=== PATIENT | male | born 1990 | race Caucasian/White ===

== ENCOUNTER 2016-10-05 13:56 | Emergency (ER) | payer OTHER ==
[2016-10-05] MEDS ORDERED: OXAZEPAM 15 MG CAP As Ordered ONE (14:25)
[2016-10-05 14:45] LABS: MEAN CORPUSCULAR HEMOGLOBIN 32.3 pg (27.0-33.0); MEAN CORPUSCULAR HGB CONC 34.7 g/dl (32.0-36.5); MEAN CORPUSCULAR VOLUME 92.8 fl (80.0-96.0); RED CELL DISTRIBUTION WIDTH 11.8 % (11.5-14.5); WHITE BLOOD COUNT 14.6 K/mm3 (4.0-10.0)
[2016-10-05 15:16] LABS: AMPHETAMINES LEVEL URINE NEGATIVE (NEGATIVE); BENZODIAZEPINES URINE POSITIVE (NEGATIVE); COCAINE METABOLITE URINE NEGATIVE (NEGATIVE); CONTROL LINE INT CTR LINE PRESENT; METHADONE URINE NEGATIVE (NEGATIVE); OPIATES URINE NEGATIVE (NEGATIVE); TRICYCLIC ANTIDEPRESS URINE NEGATIVE (NEGATIVE)
[2016-10-05 15:31] LABS: ALBUMIN 4.5 GM/DL (3.2-5.2); ALBUMIN/GLOBULIN RATIO 1.45 (1.00-1.93); ALKALINE PHOSPHATASE 57 U/L (45-117); ALT/SGPT 43 U/L (12-78); ANION GAP 10 MEQ/L (8-16); AST/SGOT 26 U/L (15-37); BILIRUBIN,DIRECT 0.2 MG/DL (0.0-0.2); BILIRUBIN,TOTAL 0.6 MG/DL (0.2-1.0); BLOOD UREA NITROGEN 14 MG/DL (7-18); CALCIUM LEVEL 9.3 MG/DL (8.5-10.1); CARBON DIOXIDE LEVEL 26 MEQ/L (21-32); CHLORIDE LEVEL 104 MEQ/L (98-107); CREATININE FOR GFR 1.16 MG/DL (0.70-1.30); GLOMERULAR FILTRATION RATE > 60.0 (>60); GLUCOSE, FASTING 74 MG/DL (70-105); MAGNESIUM LEVEL 1.9 MG/DL (1.8-2.4); POTASSIUM SERUM 4.6 MEQ/L (3.5-5.1); SODIUM LEVEL 140 MEQ/L (136-145); TOTAL PROTEIN 7.6 GM/DL (6.4-8.2)
--- NOTE | 2016-10-05 17:00 | EDDOCDS ---
Physician Documentation [facility] Name: Juan Antonio Saldaña Age: 26 yrs Sex: Male : 1990 Arrival Date: 10/05/2016 Time: 13:56 Bed 3 Private MD: Luz He [facility] Disposition: 10/05/16 16:13 Discharged to Home/Self Care. Impression: Alcohol dependence with withdrawal. - Condition is Stable. - Discharge Instructions: Alcohol Withdrawal. - Prescriptions for Oxazepam 30 mg Oral Capsule - take 1 capsule by ORAL route 3 times per day MDD: 3 tabs; 10 capsule. - Medication Reconciliation, Local Pharmacy Hours form. - Follow up: [facility] Luz He; When: Call to arrange an appointment; Reason: Recheck today's complaints, Continuance of care. - Problem is new. - Symptoms have improved. Historical: - Allergies: no known allergies; - Home Meds: 1. ibuprofen 800 mg Oral tab 1 tab 4 times per day (Last dose: 10/02/2016) 2. Tylenol 500 mg Oral tab 2 tabs (Last dose: 10/04/2016 21:00) - PMHx: PTSD; Anxiety; Depression; - PSHx: none; - Social history: Smoking status: Patient states former smoker of tobacco. No barriers to communication noted, The patient speaks fluent [place] Islander, Speaks appropriately for age. - Family history: Not pertinent. - : The pt / caregiver states he / she is not on anticoagulants. Home medication list is obtained from the patient. - Exposure Risk Screening:: None identified. Vital Signs: 10/05 14:15 BP 126 / 75 (auto/); ead 14:15 Pulse 119 MON; Pulse Ox 98% ; ead 14:21 BP 126 / 75; Pulse 114; Resp 18; Temp 97.6(O); Pulse Ox 99% on R/A; Weight 88.45 kg / ct3 195 lbs (R); Height 71 in. (180.34 cm) (R); Pain 2/10; 16:01 BP 131 / 71; Pulse 100; Resp 18; Pulse Ox 99% on R/A; ead 16:59 BP 139 / 83; Pulse 100; Resp 16; Temp 98.4; Pulse Ox 100% on R/A; ead 14:21 Body Mass Index 27.20 (88.45 kg, 180.34 cm) ct3 MDM: 14:00 Consult PFS/PSA/Engine Builder ordered. sd1 14:00 Prepared Foods Team Leader/Pulse Ox/q 15 min VS ordered. sd1 14:00 Confirm accurate psychiatric medication list and times of last dosage ordered. sd1 14:00 Oxazepam 30 mg PO once ordered. sd1 14:00 Acetaminophen Level Ordered. EDMS 14:01 Basic Metabolic Profile Ordered. EDMS 14:01 Complete Blood Count Ordered. EDMS 14:01 Drug Eval Toxicology ED Only Ordered. EDMS 14:01 Ethyl Alcohol (ethanol) Ordered. EDMS 14:01 Liver Profile Ordered. EDMS 14:01 Salicylate Level Ordered. EDMS 14:01 Thyroid Stimulating Hormone Ordered. EDMS 14:01 ECG WITH READING ER PHYS+CARDIAG ordered. EDMS 14:40 NS 0.9% 1000 ml IV at bolus once ordered. sd1 14:56 MAGNESIUM LEVEL Ordered. EDMS 15:26 Complete Blood Count Reviewed. sd1 15:26 Drug Eval Toxicology ED Only Reviewed. sd1 15:37 Acetaminophen Level Reviewed. sd1 15:37 Salicylate Level Reviewed. sd1 15:37 Basic Metabolic Profile Reviewed. sd1 15:37 Ethyl Alcohol (ethanol) Reviewed. sd1 15:37 Liver Profile Reviewed. sd1 15:37 Thyroid Stimulating Hormone Reviewed. sd1 15:37 MAGNESIUM LEVEL Reviewed. sd1 15:50 ED course: 26 yo male presents with etoh withdrawal patient reports mild tremulousness sd1 no cp no db versed given prior to arrival by EMS patient reports to me he wants to stop drinking understands risks of drinking and taking serax he has OP FU for ETOH through [place] PSA involved withdrawal mild. Administered Medications: 14:28 Drug: Oxazepam 30 mg [oxazepam 15 mg capsule (2 caps)] Route: PO; mcp 14:45 Drug: NS 0.9% 1000 ml [sodium chloride 0.9 % intravenous solution] Route: IV; Rate: mcp bolus; Site: left antecubital; Signatures: Dispatcher [employer] EDMS Emily Chavez MD MD sd1 Gisella Nagy RN RN hs1 April Jaquez RN RN ead Peters, Mary RN [facility] The chart was reviewed and I authenticate all verbal orders and agree with the evaluation and treatment provided.Corrections: (The following items were deleted from the chart) 14:56 14:47 MAGNESIUM LEVEL+LAB ordered. EDMS EDMS MTDD
--- NOTE | 2016-10-05 17:00 | EDDOCDS ---
Nurse's Notes [facility] Name: Juan Antonio Saldaña Age: 26 yrs Sex: Male : 1990 Arrival Date: 10/05/2016 Time: 13:56 Bed 3 Private MD: Luz He [facility] Diagnosis: Alcohol dependence with withdrawal Presentation: 10/05 14:07 Presenting complaint: EMS states: 7 beers last night and 1 pint of alcohol last night. hs1 Pt alcoholic hx of alocholism and enrolling in [facility] (today). Sent by [facility] for evaluation due to Behavioral Health sending him to [facility]. 2 mg Versed given per Medical Control. Pt also going through divorce - and is having some mental issues - possibly PTSD. Mental Health Triage Level: Level 1- Pt displays no suicidal or homicidal ideations and does not appear to be a danger to self or others. Adult Sepsis Screening: The patient does not have new or worsening altered mentation. Patient's respiratory rate is less than 22. Systolic blood pressure is greater than 100. Patient has a qSOFA score of 0- Negative Sepsis Screen. Suicide/Homicide risk assessment- Patient denies SI and HI but presents with another emotional, behavioral or other mental health complaint. The patient reports that he/she has not been admitted to an inpatient mental health facility in the last 30 days. The patient reports that he/she has a recent or current history of substance abuse. The patient reports that he/she has no prior history of suicide attempt and/or organized plan. The patient reports that he/she has experienced a significant life altering event in the last 30 days. The patient reports that he/she has adequate social support. The patient reports he/she has no significant chronic medical condition(s). 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 Transition of care: patient was not received from another setting of care. 14:07 Acuity: NATALIA Level 3 hs1 14:07 Method Of Arrival: Ambulance hs1 Historical: - Allergies: no known allergies; - Home Meds: 1. ibuprofen 800 mg Oral tab 1 tab 4 times per day (Last dose: 10/02/2016) 2. Tylenol 500 mg Oral tab 2 tabs (Last dose: 10/04/2016 21:00) - PMHx: PTSD; Anxiety; Depression; - PSHx: none; - Social history: Smoking status: Patient states former smoker of tobacco. No barriers to communication noted, The patient speaks fluent Uz[place], Speaks appropriately for age. - Family history: Not pertinent. - : The pt / caregiver states he / she is not on anticoagulants. Home medication list is obtained from the patient. - Exposure Risk Screening:: None identified. Screenin:48 Screening information is obtained from the patient. Fall risk: No risks identified. mcp Assistance ADL's: requires no assistance with activities of daily living. Abuse/DV Screen: The patient / caregiver reports he/she is: not in a situation that causes fear, pain or injury. Nutritional screening: No deficits noted. Advance Directives: Currently, there is no health care proxy. There is no active DNR order. There is no Power of Hospital Medical Assistant. home support is adequate. Assessment: 14:30 General: Appears distressed, Behavior is anxious. Pain: Denies pain. Neurological: mcp Level of Consciousness is awake, alert, Oriented to person, place, time, Moves all extremities. Speech is normal. Cardiovascular: Rhythm is sinus rhythm No ectopy. Chest pain is denied. Respiratory: Airway is patent Respiratory effort is even, unlabored, Breath sounds are clear bilaterally. Derm: Skin is pink, warm & dry. Musculoskeletal: Circulation, motion, and sensation intact stated leg cramps bilateral. 15:50 General: Appears in no apparent distress, comfortable, Behavior is cooperative. ead Neurological: Level of Consciousness is awake, alert, Oriented to person, place, time. 15:50 Respiratory: Airway is patent Respiratory effort is even, unlabored. Derm: Skin is ead pink, warm & dry. 16:45 General: Appears in no apparent distress, comfortable, Behavior is appropriate for age, ead cooperative. Neurological: Level of Consciousness is awake, alert, Oriented to person, place, time. Respiratory: Airway is patent Respiratory effort is even, unlabored. Derm: Skin is Skin is pink, warm & dry. Vital Signs: 14:15 BP 126 / 75 (auto/); ead 14:15 Pulse 119 MON; Pulse Ox 98% ; ead 14:21 BP 126 / 75; Pulse 114; Resp 18; Temp 97.6(O); Pulse Ox 99% on R/A; Weight 88.45 kg ct3 (R); Height 71 in. (180.34 cm) (R); Pain 2/10; 16:01 BP 131 / 71; Pulse 100; Resp 18; Pulse Ox 99% on R/A; ead 16:59 BP 139 / 83; Pulse 100; Resp 16; Temp 98.4; Pulse Ox 100% on R/A; ead 14:21 Body Mass Index 27.20 (88.45 kg, 180.34 cm) ct3 ED Course: 12:17 EKG done. (by ED staff). Reviewed by Emily Chavez MD. ct3 13:58 Patient visited by Genna Rose, Manager Land. lbd 13:58 [place], [facility] is Private Physician. lbd 13:58 Patient moved to Waiting lbd 13:59 Emily Chavez MD is Attending Physician. sd1 13:59 Patient moved to 3 lbd 14:11 Triage Initiated hs1 14:15 Patient visited by Emily Chavez MD. sd1 14:19 Elva Carreno DO is PHCP. bs6 14:21 Patient has correct armband on for positive identification. Placed in psych safe ct3 attire. Bed in low position. Call light in reach. Side rails up X2. tactical response group officer on. Pulse ox on. NIBP on. 14:22 Patient visited by Elva Carreno DO. bs6 14:22 Patient visited by Vernell Delacruz PCA. ct3 14:30 Maintain field IV. Dressing intact. Good blood return noted. Site clean & dry. Gauge & mcp site: #20 left AC. 14:47 Drug Eval Toxicology ED Only Sent. mcp 14:49 Patient visited by Emani Harrell RN. mcp 14:49 The patient / caregiver is instructed regarding the plan of care and ED course. mcp 15:01 April Jaquez RN is Primary Nurse. ead 15:01 MAGNESIUM LEVEL Sent. mcp 16:00 Patient visited by April Jaquez RN. ead 16:13 [facility] sd1 16:59 Discontinued IV intact, bleeding controlled, pressure dressing applied, No ead redness/swelling at site. No procedures done that require assistance. Administered Medications: 14:28 Drug: Oxazepam 30 mg [oxazepam 15 mg capsule (2 caps)] Route: PO; mcp 14:45 Drug: NS 0.9% 1000 ml [sodium chloride 0.9 % intravenous solution] Route: IV; Rate: mcp bolus; Site: left antecubital; Order Results: Lab Order: Acetaminophen Level; [facility]' 10/05/16 14:36 Test: ACETAMINOPHEN LEVEL; Value: < 2.0; Range: 10.0-30.0; Abnormal: Below low normal; Units: UG/ML; Status: F Lab Order: Basic Metabolic Profile; [facility]' 10/05/16 14:36 Test: GLUCOSE, FASTING; Value: 74; Range: 70-105; Units: MG/DL; Status: F Test: BLOOD UREA NITROGEN; Value: 14; Range: 7-18; Units: MG/DL; Status: F Test: CREATININE FOR GFR; Value: 1.16; Range: 0.70-1.30; Units: MG/DL; Status: F Test: GLOMERULAR FILTRATION RATE; Value: > 60.0; Range: >60; Status: F Test: SODIUM LEVEL; Value: 140; Range: 136-145; Units: MEQ/L; Status: F Test: POTASSIUM SERUM; Value: 4.6; Range: 3.5-5.1; Units: MEQ/L; Status: F Test: CHLORIDE LEVEL; Value: 104; Range: 98-107; Units: MEQ/L; Status: F Test: CARBON DIOXIDE LEVEL; Value: 26; Range: 21-32; Units: MEQ/L; Status: F Test: ANION GAP; Value: 10; Range: 8-16; Units: MEQ/L; Status: F Test: CALCIUM LEVEL; Value: 9.3; Range: 8.5-10.1; Units: MG/DL; Status: F Test Note: ; Units are mL/min/1.73 m2 Chronic Kidney Disease Staging per NKF: Stage I & II GFR >=60 Normal to Mildly Decreased Stage III GFR 30-59 Moderately Decreased Stage IV GFR 15-29 Severely Decreased Stage V GFR <15 Very Little GFR Left ESRD GFR <15 on PAVING INSPECTOR Lab Order: Complete Blood Count; SPEC' 10/05/16 14:36 Test: WHITE BLOOD COUNT; Value: 14.6; Range: 4.0-10.0; Abnormal: Above high normal; Units: K/mm3; Status: F Test: RED BLOOD COUNT; Value: 4.96; Range: 4.30-6.10; Units: M/mm3; Status: F Test: HEMOGLOBIN; Value: 16.0; Range: 14.0-18.0; Units: g/dl; Status: F Test: HEMATOCRIT; Value: 46.0; Range: 42.0-52.0; Units: %; Status: F Test: MEAN CORPUSCULAR VOLUME; Value: 92.8; Range: 80.0-96.0; Units: fl; Status: F Test: MEAN CORPUSCULAR HEMOGLOBIN; Value: 32.3; Range: 27.0-33.0; Units: pg; Status: F Test: MEAN CORPUSCULAR HGB CONC; Value: 34.7; Range: 32.0-36.5; Units: g/dl; Status: F Test: RED CELL DISTRIBUTION WIDTH; Value: 11.8; Range: 11.5-14.5; Units: %; Status: F Test: PLATELET COUNT, AUTOMATED; Value: 285; Range: 150-450; Units: k/mm3; Status: F Lab Order: Drug Eval Toxicology ED Only; SPEC'M 10/05/16 14:41 Test: AMPHETAMINES LEVEL URINE; Value: NEGATIVE; Range: NEGATIVE; Status: F Test: BARBITURATES URINE; Value: NEGATIVE; Range: NEGATIVE; Status: F Test: BENZODIAZEPINES URINE; Value: POSITIVE; Range: NEGATIVE; Abnormal: Above high normal; Status: F Test: CANNABINOIDS URINE; Value: NEGATIVE; Range: NEGATIVE; Status: F Test: COCAINE METABOLITE URINE; Value: NEGATIVE; Range: NEGATIVE; Status: F Test: METHADONE URINE; Value: NEGATIVE; Range: NEGATIVE; Status: F Test: OPIATES URINE; Value: NEGATIVE; Range: NEGATIVE; Status: F Test: TRICYCLIC ANTIDEPRESS URINE; Value: NEGATIVE; Range: NEGATIVE; Status: F Test Note: ; ALL PRESUMPTIVE POSITIVE FINDINGS ARE UNCONFIRMED NORMAL VALUES THRESHOLD IN NG/ML AMPHETAMINES 1000 METHAMPHETAMINES 1000 BARBITURATES 300 BENZODIAZEPINES 300 CANNABINOIDS (THC) 50 COCAINE METABOLITE 300 METHADONE 300 OPIATES 300 PHENCYCLIDINE 25 TRICYCLIC ANTIDEPRESSANTS 1000 RESULTS ARE FOR MEDICAL PURPOSES ONLY. ALL URINE SPECIMENS WILL BE SAVED FOR 3 DAYS. IF CONFIRMATION OF A PRESUMPTIVE POSTIVE SCREEN RESULT IS DESIRED, CALL CHEMISTRY ([phone]) AND REQUEST URINE TO BE SENT TO REFERENCE LAB. FOR A LIST OF CLOSELY RELATED COMPOUNDS PLEASE CALL THE LAB. Lab Order: Ethyl Alcohol (ethanol); [facility]' 10/05/16 14:36 Test: ETHYL ALCOHOL (ETHANOL); Value: < 0.003; Range: 0.000-0.010; Units: %; Status: F Lab Order: Liver Profile; [facility] 10/05/16 14:36 Test: AST/SGOT; Value: 26; Range: 15-37; Units: U/L; Status: F Test: ALT/SGPT; Value: 43; Range: 12-78; Units: U/L; Status: F Test: ALKALINE PHOSPHATASE; Value: 57; Range: 45-117; Units: U/L; Status: F Test: BILIRUBIN,TOTAL; Value: 0.6; Range: 0.2-1.0; Units: MG/DL; Status: F Test: BILIRUBIN,DIRECT; Value: 0.2; Range: 0.0-0.2; Units: MG/DL; Status: F Test: TOTAL PROTEIN; Value: 7.6; Range: 6.4-8.2; Units: GM/DL; Status: F Test: ALBUMIN; Value: 4.5; Range: 3.2-5.2; Units: GM/DL; Status: F Test: ALBUMIN/GLOBULIN RATIO; Value: 1.45; Range: 1.00-1.93; Status: F Lab Order: Salicylate Level; [facility] 10/05/16 14:36 Test: SALICYLATE LEVEL; Value: < 1.7; Range: 5.0-30.0; Abnormal: Below low normal; Units: MG/DL; Status: F Lab Order: Thyroid Stimulating Hormone; [facility]' 10/05/16 14:36 Test: THYROID STIMULATING HORMONE; Value: 0.590; Range: 0.358-3.740; Units: uIU/ML; Status: F Lab Order: MAGNESIUM LEVEL; [facility]' 10/05/16 14:36 Test: MAGNESIUM LEVEL; Value: 1.9; Range: 1.8-2.4; Units: MG/DL; Status: F Outcome: 16:13 Discharge ordered by Provider. sd1 16:59 Discharge Assessment: Patient awake and alert. obeys commands, Oriented to person, ead place and time. patient administered narcotics - no. The following High Risk Discharge criteria are identified: None. Discharged to home ambulatory, with friend. Condition: improved. Discharge instructions given to patient, Instructed on discharge instructions, follow up and referral plans. medication usage, Demonstrated understanding of instructions, medications, Pt was receptive of discharge instructions/ teaching. Prescriptions given X 1. No special radiology studies were completed. Property sent home with patient. 17:00 Patient left the ED. ead Signatures: Emily Chavez MD MD sd1 Genna Rose, Manager Land Unit lbd Emani Harrell RN RN Gisella Das RN RN hs1 Vernell Delacruz, MEDIA PROFESSIONAL MEDIA PROFESSIONAL ct3 April JaquezRN RN ead Elva Carreno, DO bs6 MTDKaterina
--- NOTE | 2016-10-06 09:26 | EDDOCDS ---
Physician Documentation [facility] Name: Juan Antonio Saldaña Age: 26 yrs Sex: Male : 1990 Arrival Date: 10/05/2016 Time: 13:56 Bed 3 Private MD: Luz He [facility] Disposition: 10/05/16 16:13 Discharged to Home/Self Care. Impression: Alcohol dependence with withdrawal. - Condition is Stable. - Discharge Instructions: Alcohol Withdrawal. - Prescriptions for Oxazepam 30 mg Oral Capsule - take 1 capsule by ORAL route 3 times per day MDD: 3 tabs; 10 capsule. - Medication Reconciliation, Local Pharmacy Hours form. - Follow up: [facility] Luz He; When: Call to arrange an appointment; Reason: Recheck today's complaints, Continuance of care. - Problem is new. - Symptoms have improved. Historical: - Allergies: no known allergies; - Home Meds: 1. ibuprofen 800 mg Oral tab 1 tab 4 times per day (Last dose: 10/02/2016) 2. Tylenol 500 mg Oral tab 2 tabs (Last dose: 10/04/2016 21:00) - PMHx: PTSD; Anxiety; Depression; - PSHx: none; - Social history: Smoking status: Patient states former smoker of tobacco. No barriers to communication noted, The patient speaks fluent Chadian, Speaks appropriately for age. - Family history: Not pertinent. - : The pt / caregiver states he / she is not on anticoagulants. Home medication list is obtained from the patient. - Exposure Risk Screening:: None identified. Vital Signs: 10/05 14:15 BP 126 / 75 (auto/); ead 14:15 Pulse 119 MON; Pulse Ox 98% ; ead 14:21 BP 126 / 75; Pulse 114; Resp 18; Temp 97.6(O); Pulse Ox 99% on R/A; Weight 88.45 kg / ct3 195 lbs (R); Height 71 in. (180.34 cm) (R); Pain 2/10; 16:01 BP 131 / 71; Pulse 100; Resp 18; Pulse Ox 99% on R/A; ead 16:59 BP 139 / 83; Pulse 100; Resp 16; Temp 98.4; Pulse Ox 100% on R/A; ead 14:21 Body Mass Index 27.20 (88.45 kg, 180.34 cm) ct3 MDM: 14:00 Consult PFS/PSA/Concession Supervisor ordered. sd1 14:00 Campus Coordinator/Pulse Ox/q 15 min VS ordered. sd1 14:00 Confirm accurate psychiatric medication list and times of last dosage ordered. sd1 14:00 Oxazepam 30 mg PO once ordered. sd1 14:00 Acetaminophen Level Ordered. EDMS 14:01 Basic Metabolic Profile Ordered. EDMS 14:01 Complete Blood Count Ordered. EDMS 14:01 Drug Eval Toxicology ED Only Ordered. EDMS 14:01 Ethyl Alcohol (ethanol) Ordered. EDMS 14:01 Liver Profile Ordered. EDMS 14:01 Salicylate Level Ordered. EDMS 14:01 Thyroid Stimulating Hormone Ordered. EDMS 14:01 ECG WITH READING ER PHYS+CARDIAG ordered. EDMS 14:40 NS 0.9% 1000 ml IV at bolus once ordered. sd1 14:56 MAGNESIUM LEVEL Ordered. EDMS 15:26 Complete Blood Count Reviewed. sd1 15:26 Drug Eval Toxicology ED Only Reviewed. sd1 15:37 Acetaminophen Level Reviewed. sd1 15:37 Salicylate Level Reviewed. sd1 15:37 Basic Metabolic Profile Reviewed. sd1 15:37 Ethyl Alcohol (ethanol) Reviewed. sd1 15:37 Liver Profile Reviewed. sd1 15:37 Thyroid Stimulating Hormone Reviewed. sd1 15:37 MAGNESIUM LEVEL Reviewed. sd1 15:50 ED course: 26 yo male presents with etoh withdrawal patient reports mild tremulousness sd1 no cp no db versed given prior to arrival by EMS patient reports to me he wants to stop drinking understands risks of drinking and taking serax he has OP FU for ETOH through [place] PSA involved withdrawal mild. 17:16 Financial registration complete. [email or web address] 17:16 [facility] Payment Agreement was scanned into [employer] and attached to record. [email or web address] Administered Medications: 14:28 Drug: Oxazepam 30 mg [oxazepam 15 mg capsule (2 caps)] Route: PO; mcp 14:45 Drug: NS 0.9% 1000 ml [sodium chloride 0.9 % intravenous solution] Route: IV; Rate: mcp bolus; Site: left antecubital; Signatures: Dispatcher [employer] EDMS Emily Chavez MD MD sd1 Gisella Nagy RN RN hs1 April JaquezRN RN Liudmila Zamudio, Reg Reg [email or web address] Emani Harrell RN [facility] The chart was reviewed and I authenticate all verbal orders and agree with the evaluation and treatment provided.Corrections: (The following items were deleted from the chart) 14:56 14:47 MAGNESIUM LEVEL+LAB ordered. EDMS EDMS Attachments: 17:16 [facility] Payment Agreement [email or web address] MTDD
--- NOTE | 2016-10-06 09:26 | EDDOCDS ---
Nurse's Notes [facility] Name: Juan Antonio Saldaña Age: 26 yrs Sex: Male : 1990 Arrival Date: 10/05/2016 Time: 13:56 Bed 3 Private MD: Luz He [facility] Diagnosis: Alcohol dependence with withdrawal Presentation: 10/05 14:07 Presenting complaint: EMS states: 7 beers last night and 1 pint of alcohol last night. hs1 Pt alcoholic hx of alocholism and enrolling in [facility] (today). Sent by [facility] for evaluation due to Behavioral Health sending him to [facility]. 2 mg Versed given per Medical Control. Pt also going through divorce - and is having some mental issues - possibly PTSD. Mental Health Triage Level: Level 1- Pt displays no suicidal or homicidal ideations and does not appear to be a danger to self or others. Adult Sepsis Screening: The patient does not have new or worsening altered mentation. Patient's respiratory rate is less than 22. Systolic blood pressure is greater than 100. Patient has a qSOFA score of 0- Negative Sepsis Screen. Suicide/Homicide risk assessment- Patient denies SI and HI but presents with another emotional, behavioral or other mental health complaint. The patient reports that he/she has not been admitted to an inpatient mental health facility in the last 30 days. The patient reports that he/she has a recent or current history of substance abuse. The patient reports that he/she has no prior history of suicide attempt and/or organized plan. The patient reports that he/she has experienced a significant life altering event in the last 30 days. The patient reports that he/she has adequate social support. The patient reports he/she has no significant chronic medical condition(s). 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 Transition of care: patient was not received from another setting of care. 14:07 Acuity: NATALIA Level 3 hs1 14:07 Method Of Arrival: Ambulance hs1 Historical: - Allergies: no known allergies; - Home Meds: 1. ibuprofen 800 mg Oral tab 1 tab 4 times per day (Last dose: 10/02/2016) 2. Tylenol 500 mg Oral tab 2 tabs (Last dose: 10/04/2016 21:00) - PMHx: PTSD; Anxiety; Depression; - PSHx: none; - Social history: Smoking status: Patient states former smoker of tobacco. No barriers to communication noted, The patient speaks fluent Mongolian, Speaks appropriately for age. - Family history: Not pertinent. - : The pt / caregiver states he / she is not on anticoagulants. Home medication list is obtained from the patient. - Exposure Risk Screening:: None identified. Screenin:48 Screening information is obtained from the patient. Fall risk: No risks identified. mcp Assistance ADL's: requires no assistance with activities of daily living. Abuse/DV Screen: The patient / caregiver reports he/she is: not in a situation that causes fear, pain or injury. Nutritional screening: No deficits noted. Advance Directives: Currently, there is no health care proxy. There is no active DNR order. There is no Power of Residential Lawn Specialist. home support is adequate. Assessment: 14:30 General: Appears distressed, Behavior is anxious. Pain: Denies pain. Neurological: [facility] Level of Consciousness is awake, alert, Oriented to person, place, time, Moves all extremities. Speech is normal. Cardiovascular: Rhythm is sinus rhythm No ectopy. Chest pain is denied. Respiratory: Airway is patent Respiratory effort is even, unlabored, Breath sounds are clear bilaterally. Derm: Skin is pink, warm & dry. Musculoskeletal: Circulation, motion, and sensation intact stated leg cramps bilateral. 15:50 General: Appears in no apparent distress, comfortable, Behavior is cooperative. ead Neurological: Level of Consciousness is awake, alert, Oriented to person, place, time. 15:50 Respiratory: Airway is patent Respiratory effort is even, unlabored. Derm: Skin is ead pink, warm & dry. 16:45 General: Appears in no apparent distress, comfortable, Behavior is appropriate for age, ead cooperative. Neurological: Level of Consciousness is awake, alert, Oriented to person, place, time. Respiratory: Airway is patent Respiratory effort is even, unlabored. Derm: Skin is Skin is pink, warm & dry. Social Work Consult: 20:44 Social Work Note: Pt presented on referral from [facility] due to ETOH withdrawal. PT ac states he he been in [employer] for 9 years, has had 3 deployments and has been drinking heavily for the last 8. Pt denies SI/HI, no AH/VH. PT states he has been through [facility] already, Pt advised to report to [facility] tomorrow for follow up. No further intervention required. 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 Vital Signs: 14:15 BP 126 / 75 (auto/); ead 14:15 Pulse 119 MON; Pulse Ox 98% ; ead 14:21 BP 126 / 75; Pulse 114; Resp 18; Temp 97.6(O); Pulse Ox 99% on R/A; Weight 88.45 kg ct3 (R); Height 71 in. (180.34 cm) (R); Pain 2/10; 16:01 BP 131 / 71; Pulse 100; Resp 18; Pulse Ox 99% on R/A; ead 16:59 BP 139 / 83; Pulse 100; Resp 16; Temp 98.4; Pulse Ox 100% on R/A; ead 14:21 Body Mass Index 27.20 (88.45 kg, 180.34 cm) ct3 ED Course: 12:17 EKG done. (by ED staff). Reviewed by Emily Chavez MD. ct3 13:58 Patient visited by Genna Rose, Automatic Door Mechanic. lbd 13:58 [facility] is Private Physician. lbd 13:58 Patient moved to Waiting lbd 13:59 Emily Chavez MD is Attending Physician. sd1 13:59 Patient moved to 3 lbd 14:11 Triage Initiated hs1 14:15 Patient visited by Emily Chavez MD. sd1 14:19 Elva Carreno DO is PHCP. bs6 14:21 Patient has correct armband on for positive identification. Placed in psych safe ct3 attire. Bed in low position. Call light in reach. Side rails up X2. crown assembly machine set up mechanic on. Pulse ox on. NIBP on. 14:22 Patient visited by Elva Carreno DO. bs6 14:22 Patient visited by Vernell Delacruz PCA. ct3 14:30 Maintain field IV. Dressing intact. Good blood return noted. Site clean & dry. Gauge & mcp site: #20 left AC. 14:47 Drug Eval Toxicology ED Only Sent. mcp 14:49 Patient visited by Emani Harrell RN. mcp 14:49 The patient / caregiver is instructed regarding the plan of care and ED course. mcp 15:01 April Jaquez RN is Primary Nurse. ead 15:01 MAGNESIUM LEVEL Sent. mcp 16:00 Patient visited by April Jaquez RN. ead 16:13 Luz He [facility] is Referral Physician. sd1 16:59 Discontinued IV intact, bleeding controlled, pressure dressing applied, No ead redness/swelling at site. No procedures done that require assistance. 17:12 Patient name changed from Juan Antonio\S\\S\Balser\S\ to Juan Antonio\S\ \S\Balser. EDMS 17:16 [facility] Payment Agreement was scanned into [employer] and attached to record. ks16 20:47 Patient visited by John Milian PSA. ac 10/06 09:24 Primary Nurse role handed off by April Jaquez RN sd1 09:24 PHCP role handed off by Elva Carreno DO sd1 Administered Medications: 10/05 14:28 Drug: Oxazepam 30 mg [oxazepam 15 mg capsule (2 caps)] Route: PO; mcp 14:45 Drug: NS 0.9% 1000 ml [sodium chloride 0.9 % intravenous solution] Route: IV; Rate: mcp bolus; Site: left antecubital; Order Results: Lab Order: Acetaminophen Level; SPEC'M 10/05/16 14:36 Test: ACETAMINOPHEN LEVEL; Value: < 2.0; Range: 10.0-30.0; Abnormal: Below low normal; Units: UG/ML; Status: F Lab Order: Basic Metabolic Profile; SPEC'M 10/05/16 14:36 Test: GLUCOSE, FASTING; Value: 74; Range: 70-105; Units: MG/DL; Status: F Test: BLOOD UREA NITROGEN; Value: 14; Range: 7-18; Units: MG/DL; Status: F Test: CREATININE FOR GFR; Value: 1.16; Range: 0.70-1.30; Units: MG/DL; Status: F Test: GLOMERULAR FILTRATION RATE; Value: > 60.0; Range: >60; Status: F Test: SODIUM LEVEL; Value: 140; Range: 136-145; Units: MEQ/L; Status: F Test: POTASSIUM SERUM; Value: 4.6; Range: 3.5-5.1; Units: MEQ/L; Status: F Test: CHLORIDE LEVEL; Value: 104; Range: 98-107; Units: MEQ/L; Status: F Test: CARBON DIOXIDE LEVEL; Value: 26; Range: 21-32; Units: MEQ/L; Status: F Test: ANION GAP; Value: 10; Range: 8-16; Units: MEQ/L; Status: F Test: CALCIUM LEVEL; Value: 9.3; Range: 8.5-10.1; Units: MG/DL; Status: F Test Note: ; Units are mL/min/1.73 m2 Chronic Kidney Disease Staging per NKF: Stage I & II GFR >=60 Normal to Mildly Decreased Stage III GFR 30-59 Moderately Decreased Stage IV GFR 15-29 Severely Decreased Stage V GFR <15 Very Little GFR Left ESRD GFR <15 on FALAF[facility]ART [facility]OOK Lab Order: Complete Blood Count; SPEC'M 10/05/16 14:36 Test: WHITE BLOOD COUNT; Value: 14.6; Range: 4.0-10.0; Abnormal: Above high normal; Units: K/mm3; Status: F Test: RED BLOOD COUNT; Value: 4.96; Range: 4.30-6.10; Units: M/mm3; Status: F Test: HEMOGLOBIN; Value: 16.0; Range: 14.0-18.0; Units: g/dl; Status: F Test: HEMATOCRIT; Value: 46.0; Range: 42.0-52.0; Units: %; Status: F Test: MEAN CORPUSCULAR VOLUME; Value: 92.8; Range: 80.0-96.0; Units: fl; Status: F Test: MEAN CORPUSCULAR HEMOGLOBIN; Value: 32.3; Range: 27.0-33.0; Units: pg; Status: F Test: MEAN CORPUSCULAR HGB CONC; Value: 34.7; Range: 32.0-36.5; Units: g/dl; Status: F Test: RED CELL DISTRIBUTION WIDTH; Value: 11.8; Range: 11.5-14.5; Units: %; Status: F Test: PLATELET COUNT, AUTOMATED; Value: 285; Range: 150-450; Units: k/mm3; Status: F Lab Order: Drug Eval Toxicology ED Only; SPEC'M 10/05/16 14:41 Test: AMPHETAMINES LEVEL URINE; Value: NEGATIVE; Range: NEGATIVE; Status: F Test: BARBITURATES URINE; Value: NEGATIVE; Range: NEGATIVE; Status: F Test: BENZODIAZEPINES URINE; Value: POSITIVE; Range: NEGATIVE; Abnormal: Above high normal; Status: F Test: CANNABINOIDS URINE; Value: NEGATIVE; Range: NEGATIVE; Status: F Test: COCAINE METABOLITE URINE; Value: NEGATIVE; Range: NEGATIVE; Status: F Test: METHADONE URINE; Value: NEGATIVE; Range: NEGATIVE; Status: F Test: OPIATES URINE; Value: NEGATIVE; Range: NEGATIVE; Status: F Test: TRICYCLIC ANTIDEPRESS URINE; Value: NEGATIVE; Range: NEGATIVE; Status: F Test Note: ; ALL PRESUMPTIVE POSITIVE FINDINGS ARE UNCONFIRMED NORMAL VALUES THRESHOLD IN NG/ML AMPHETAMINES 1000 METHAMPHETAMINES 1000 BARBITURATES 300 BENZODIAZEPINES 300 CANNABINOIDS (THC) 50 COCAINE METABOLITE 300 METHADONE 300 OPIATES 300 PHENCYCLIDINE 25 TRICYCLIC ANTIDEPRESSANTS 1000 RESULTS ARE FOR MEDICAL PURPOSES ONLY. ALL URINE SPECIMENS WILL BE SAVED FOR 3 DAYS. IF CONFIRMATION OF A PRESUMPTIVE POSTIVE SCREEN RESULT IS DESIRED, CALL CHEMISTRY ([phone]) AND REQUEST URINE TO BE SENT TO REFERENCE LAB. FOR A LIST OF CLOSELY RELATED COMPOUNDS PLEASE CALL THE LAB. Lab Order: Ethyl Alcohol (ethanol); SPEC'M 10/05/16 14:36 Test: ETHYL ALCOHOL (ETHANOL); Value: < 0.003; Range: 0.000-0.010; Units: %; Status: F Lab Order: Liver Profile; SPEC'M 10/05/16 14:36 Test: AST/SGOT; Value: 26; Range: 15-37; Units: U/L; Status: F Test: ALT/SGPT; Value: 43; Range: 12-78; Units: U/L; Status: F Test: ALKALINE PHOSPHATASE; Value: 57; Range: 45-117; Units: U/L; Status: F Test: BILIRUBIN,TOTAL; Value: 0.6; Range: 0.2-1.0; Units: MG/DL; Status: F Test: BILIRUBIN,DIRECT; Value: 0.2; Range: 0.0-0.2; Units: MG/DL; Status: F Test: TOTAL PROTEIN; Value: 7.6; Range: 6.4-8.2; Units: GM/DL; Status: F Test: ALBUMIN; Value: 4.5; Range: 3.2-5.2; Units: GM/DL; Status: F Test: ALBUMIN/GLOBULIN RATIO; Value: 1.45; Range: 1.00-1.93; Status: F Lab Order: Salicylate Level; SPEC'M 10/05/16 14:36 Test: SALICYLATE LEVEL; Value: < 1.7; Range: 5.0-30.0; Abnormal: Below low normal; Units: MG/DL; Status: F Lab Order: Thyroid Stimulating Hormone; SPEC'M 10/05/16 14:36 Test: THYROID STIMULATING HORMONE; Value: 0.590; Range: 0.358-3.740; Units: uIU/ML; Status: F Lab Order: MAGNESIUM LEVEL; SPEC'M 10/05/16 14:36 Test: MAGNESIUM LEVEL; Value: 1.9; Range: 1.8-2.4; Units: MG/DL; Status: F Outcome: 16:13 Discharge ordered by Provider. sd1 16:59 Discharge Assessment: Patient awake and alert. obeys commands, Oriented to person, ead place and time. patient administered narcotics - no. The following High Risk Discharge criteria are identified: None. Discharged to home ambulatory, with friend. Condition: improved. Discharge instructions given to patient, Instructed on discharge instructions, follow up and referral plans. medication usage, Demonstrated understanding of instructions, medications, Pt was receptive of discharge instructions/ teaching. Prescriptions given X 1. No special radiology studies were completed. Property sent home with patient. 17:00 Patient left the ED. ead 10/06 09:25 Patient left the ED. sd1 Signatures: Dispatcher [employer] EDDE Emily Chavez MD MD sd1 Genna Rose, Automatic Door Mechanic Unit lbd Emani Harrell, RN RN mcp John Milian, PSA PSA Gisella Moraes, RN RN hs1 Vernell Delacruz, WRAPPING MACHINE HELPER WRAPPING MACHINE HELPER ct3 April Jaquez,JOSE DANIEL RN Elva Archuleta, DO DO bs6 Liudmila Powell, Reg Reg ks16 MTDD
--- NOTE | 2016-10-06 19:42 | ECGEPIP ---
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
--- NOTE | 2016-10-08 10:26 | EDDOCDS ---
Physician Documentation [facility] Name: Juan Antonio Saldaña Age: 26 yrs Sex: Male : 1990 Arrival Date: 10/05/2016 Time: 13:56 Bed 3 Private MD: Luz He [facility] Disposition: 10/05/16 16:13 Discharged to Home/Self Care. Impression: Alcohol dependence with withdrawal. - Condition is Stable. - Discharge Instructions: Alcohol Withdrawal. - Prescriptions for Oxazepam 30 mg Oral Capsule - take 1 capsule by ORAL route 3 times per day MDD: 3 tabs; 10 capsule. - Medication Reconciliation, Local Pharmacy Hours form. - Follow up: [facility] Luz He; When: Call to arrange an appointment; Reason: Recheck today's complaints, Continuance of care. - Problem is new. - Symptoms have improved. Historical: - Allergies: no known allergies; - Home Meds: 1. ibuprofen 800 mg Oral tab 1 tab 4 times per day (Last dose: 10/02/2016) 2. Tylenol 500 mg Oral tab 2 tabs (Last dose: 10/04/2016 21:00) - PMHx: PTSD; Anxiety; Depression; - PSHx: none; - Social history: Smoking status: Patient states former smoker of tobacco. No barriers to communication noted, The patient speaks fluent Thai, Speaks appropriately for age. - Family history: Not pertinent. - : The pt / caregiver states he / she is not on anticoagulants. Home medication list is obtained from the patient. - Exposure Risk Screening:: None identified. Vital Signs: 10/05 14:15 BP 126 / 75 (auto/); ead 14:15 Pulse 119 MON; Pulse Ox 98% ; ead 14:21 BP 126 / 75; Pulse 114; Resp 18; Temp 97.6(O); Pulse Ox 99% on R/A; Weight 88.45 kg / ct3 195 lbs (R); Height 71 in. (180.34 cm) (R); Pain 2/10; 16:01 BP 131 / 71; Pulse 100; Resp 18; Pulse Ox 99% on R/A; ead 16:59 BP 139 / 83; Pulse 100; Resp 16; Temp 98.4; Pulse Ox 100% on R/A; ead 14:21 Body Mass Index 27.20 (88.45 kg, 180.34 cm) ct3 MDM: 14:00 Consult PFS/PSA/Acquisition Marketing Coordinator ordered. sd1 14:00 Clinical Nursing Director/Pulse Ox/q 15 min VS ordered. sd1 14:00 Confirm accurate psychiatric medication list and times of last dosage ordered. sd1 14:00 Oxazepam 30 mg PO once ordered. sd1 14:00 Acetaminophen Level Ordered. EDMS 14:01 Basic Metabolic Profile Ordered. EDMS 14:01 Complete Blood Count Ordered. EDMS 14:01 Drug Eval Toxicology ED Only Ordered. EDMS 14:01 Ethyl Alcohol (ethanol) Ordered. EDMS 14:01 Liver Profile Ordered. EDMS 14:01 Salicylate Level Ordered. EDMS 14:01 Thyroid Stimulating Hormone Ordered. EDMS 14:01 ECG WITH READING ER PHYS+CARDIAG ordered. EDMS 14:40 NS 0.9% 1000 ml IV at bolus once ordered. sd1 14:56 MAGNESIUM LEVEL Ordered. EDMS 15:26 Complete Blood Count Reviewed. sd1 15:26 Drug Eval Toxicology ED Only Reviewed. sd1 15:37 Acetaminophen Level Reviewed. sd1 15:37 Salicylate Level Reviewed. sd1 15:37 Basic Metabolic Profile Reviewed. sd1 15:37 Ethyl Alcohol (ethanol) Reviewed. sd1 15:37 Liver Profile Reviewed. sd1 15:37 Thyroid Stimulating Hormone Reviewed. sd1 15:37 MAGNESIUM LEVEL Reviewed. sd1 15:50 ED course: 26 yo male presents with etoh withdrawal patient reports mild tremulousness sd1 no cp no db versed given prior to arrival by EMS patient reports to me he wants to stop drinking understands risks of drinking and taking serax he has OP FU for ETOH through [place] [facility] involved withdrawal mild. 17:16 Financial registration complete. ks16 17:16 [facility] Payment Agreement was scanned into [employer] and attached to record. ks16 10/06 09:30 PCR was scanned into [employer] and attached to record. gb 14:29 ECG/EKG was scanned into [employer] and attached to record. gb Administered Medications: 10/05 14:28 Drug: Oxazepam 30 mg [oxazepam 15 mg capsule (2 caps)] Route: PO; mcp 14:45 Drug: NS 0.9% 1000 ml [sodium chloride 0.9 % intravenous solution] Route: IV; Rate: mcp bolus; Site: left antecubital; Signatures: Dispatcher [employer] EDMS Emily Chavez MD MD sd1 Kim Baez, Reg Reg gb Gisella Nagy RN RN hs1 April Jaquez RN RN eaLiudmila Swann, Reg Reg ks16 Emani Harrell RN, mcp The chart was reviewed and I authenticate all verbal orders and agree with the evaluation and treatment provided.Corrections: (The following items were deleted from the chart) 14:56 14:47 MAGNESIUM LEVEL+LAB ordered. EDMS EDMS Attachments: 17:16 ON LICENSE OF [facility] Payment Agreement ks16 14:29 ECG/EKG gb Chart Complete MTDD
--- NOTE | 2016-10-08 10:27 | EDDOCDS ---
Nurse's Notes [facility] Name: Fady Saldaña Age: 26 yrs Sex: Male : 1990 Arrival Date: 10/05/2016 Time: 13:56 Bed 3 Private MD: Luz He [facility] Diagnosis: Alcohol dependence with withdrawal Presentation: 10/05 14:07 Presenting complaint: EMS states: 7 beers last night and 1 pint of alcohol last night. hs1 Pt alcoholic hx of alocholism and enrolling in [facility] (today). Sent by [facility] for evaluation due to Behavioral Health sending him to [facility]. 2 mg Versed given per Medical Control. Pt also going through divorce - and is having some mental issues - possibly PTSD. Mental Health Triage Level: Level 1- Pt displays no suicidal or homicidal ideations and does not appear to be a danger to self or others. Adult Sepsis Screening: The patient does not have new or worsening altered mentation. Patient's respiratory rate is less than 22. Systolic blood pressure is greater than 100. Patient has a qSOFA score of 0- Negative Sepsis Screen. Suicide/Homicide risk assessment- Patient denies SI and HI but presents with another emotional, behavioral or other mental health complaint. The patient reports that he/she has not been admitted to an inpatient mental health facility in the last 30 days. The patient reports that he/she has a recent or current history of substance abuse. The patient reports that he/she has no prior history of suicide attempt and/or organized plan. The patient reports that he/she has experienced a significant life altering event in the last 30 days. The patient reports that he/she has adequate social support. The patient reports he/she has no significant chronic medical condition(s). 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 Transition of care: patient was not received from another setting of care. 14:07 Acuity: NATALIA Level 3 hs1 14:07 Method Of Arrival: Ambulance hs1 Historical: - Allergies: no known allergies; - Home Meds: 1. ibuprofen 800 mg Oral tab 1 tab 4 times per day (Last dose: 10/02/2016) 2. Tylenol 500 mg Oral tab 2 tabs (Last dose: 10/04/2016 21:00) - PMHx: PTSD; Anxiety; Depression; - PSHx: none; - Social history: Smoking status: Patient states former smoker of tobacco. No barriers to communication noted, The patient speaks fluent Croatian, Speaks appropriately for age. - Family history: Not pertinent. - : The pt / caregiver states he / she is not on anticoagulants. Home medication list is obtained from the patient. - Exposure Risk Screening:: None identified. Screenin:48 Screening information is obtained from the patient. Fall risk: No risks identified. mcp Assistance ADL's: requires no assistance with activities of daily living. Abuse/DV Screen: The patient / caregiver reports he/she is: not in a situation that causes fear, pain or injury. Nutritional screening: No deficits noted. Advance Directives: Currently, there is no health care proxy. There is no active DNR order. There is no Power of Case Coordinator. home support is adequate. Assessment: 14:30 General: Appears distressed, Behavior is anxious. Pain: Denies pain. Neurological: [facility] Level of Consciousness is awake, alert, Oriented to person, place, time, Moves all extremities. Speech is normal. Cardiovascular: Rhythm is sinus rhythm No ectopy. Chest pain is denied. Respiratory: Airway is patent Respiratory effort is even, unlabored, Breath sounds are clear bilaterally. Derm: Skin is pink, warm & dry. Musculoskeletal: Circulation, motion, and sensation intact stated leg cramps bilateral. 15:50 General: Appears in no apparent distress, comfortable, Behavior is cooperative. ead Neurological: Level of Consciousness is awake, alert, Oriented to person, place, time. 15:50 Respiratory: Airway is patent Respiratory effort is even, unlabored. Derm: Skin is ead pink, warm & dry. 16:45 General: Appears in no apparent distress, comfortable, Behavior is appropriate for age, ead cooperative. Neurological: Level of Consciousness is awake, alert, Oriented to person, place, time. Respiratory: Airway is patent Respiratory effort is even, unlabored. Derm: Skin is Skin is pink, warm & dry. Social Work Consult: 20:44 Social Work Note: Pt presented on referral from [facility] due to ETOH withdrawal. PT ac states he he been in [employer] for 9 years, has had 3 deployments and has been drinking heavily for the last 8. Pt denies SI/HI, no AH/VH. PT states he has been through [facility] already, Pt advised to report to [facility] tomorrow for follow up. No further intervention required. 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 Vital Signs: 14:15 BP 126 / 75 (auto/); ead 14:15 Pulse 119 MON; Pulse Ox 98% ; ead 14:21 BP 126 / 75; Pulse 114; Resp 18; Temp 97.6(O); Pulse Ox 99% on R/A; Weight 88.45 kg ct3 (R); Height 71 in. (180.34 cm) (R); Pain 2/10; 16:01 BP 131 / 71; Pulse 100; Resp 18; Pulse Ox 99% on R/A; ead 16:59 BP 139 / 83; Pulse 100; Resp 16; Temp 98.4; Pulse Ox 100% on R/A; ead 14:21 Body Mass Index 27.20 (88.45 kg, 180.34 cm) ct3 ED Course: 12:17 EKG done. (by ED staff). Reviewed by Emily Chavez MD. ct3 13:58 Patient visited by Genna Rose, Automotive Service Porter. lbd 13:58 [facility] is Private Physician. lbd 13:58 Patient moved to Waiting lbd 13:59 Emily Chavez MD is Attending Physician. sd1 13:59 Patient moved to 3 lbd 14:11 Triage Initiated hs1 14:15 Patient visited by Emily Chavez MD. sd1 14:19 Elva Carreno DO is PHCP. bs6 14:21 Patient has correct armband on for positive identification. Placed in psych safe ct3 attire. Bed in low position. Call light in reach. Side rails up X2. computer network support specialist on. Pulse ox on. NIBP on. 14:22 Patient visited by Elva Carreno DO. bs6 14:22 Patient visited by Vernell Delacruz PCA. ct3 14:30 Maintain field IV. Dressing intact. Good blood return noted. Site clean & dry. Gauge & mcp site: #20 left AC. 14:47 Drug Eval Toxicology ED Only Sent. mcp 14:49 Patient visited by Emani Harrell RN. mcp 14:49 The patient / caregiver is instructed regarding the plan of care and ED course. mcp 15:01 April Jaquez,RN is Primary Nurse. ead 15:01 MAGNESIUM LEVEL Sent. mcp 16:00 Patient visited by April Jaquez RN. ead 16:13 Luz He [facility] is Referral Physician. sd1 16:59 Discontinued IV intact, bleeding controlled, pressure dressing applied, No ead redness/swelling at site. No procedures done that require assistance. 17:12 Patient name changed from Fady\S\\S\Balser\S\ to Fady\S\ \S\Balser. EDMS 17:16 [facility] [place] Payment Agreement was scanned into [employer] and attached to record. ks16 20:47 Patient visited by John Milian PSA. ac 10/06 09:24 Primary Nurse role handed off by April Jaquez RN sd1 09:24 PHCP role handed off by Elva Carreno DO sd1 09:30 PCR was scanned into [employer] and attached to record. gb 14:29 ECG/EKG was scanned into [employer] and attached to record. gb 20:05 EKG-ADULT Returned. EDMS Administered Medications: 10/05 14:28 Drug: Oxazepam 30 mg [oxazepam 15 mg capsule (2 caps)] Route: PO; mcp 14:45 Drug: NS 0.9% 1000 ml [sodium chloride 0.9 % intravenous solution] Route: IV; Rate: mcp bolus; Site: left antecubital; Order Results: Lab Order: Acetaminophen Level; SPEC'M 10/05/16 14:36 Test: ACETAMINOPHEN LEVEL; Value: < 2.0; Range: 10.0-30.0; Abnormal: Below low normal; Units: UG/ML; Status: F Lab Order: Basic Metabolic Profile; SPEC'M 10/05/16 14:36 Test: GLUCOSE, FASTING; Value: 74; Range: 70-105; Units: MG/DL; Status: F Test: BLOOD UREA NITROGEN; Value: 14; Range: 7-18; Units: MG/DL; Status: F Test: CREATININE FOR GFR; Value: 1.16; Range: 0.70-1.30; Units: MG/DL; Status: F Test: GLOMERULAR FILTRATION RATE; Value: > 60.0; Range: >60; Status: F Test: SODIUM LEVEL; Value: 140; Range: 136-145; Units: MEQ/L; Status: F Test: POTASSIUM SERUM; Value: 4.6; Range: 3.5-5.1; Units: MEQ/L; Status: F Test: CHLORIDE LEVEL; Value: 104; Range: 98-107; Units: MEQ/L; Status: F Test: CARBON DIOXIDE LEVEL; Value: 26; Range: 21-32; Units: MEQ/L; Status: F Test: ANION GAP; Value: 10; Range: 8-16; Units: MEQ/L; Status: F Test: CALCIUM LEVEL; Value: 9.3; Range: 8.5-10.1; Units: MG/DL; Status: F Test Note: ; Units are mL/min/1.73 m2 Chronic Kidney Disease Staging per NKF: Stage I & II GFR >=60 Normal to Mildly Decreased Stage III GFR 30-59 Moderately Decreased Stage IV GFR 15-29 Severely Decreased Stage V GFR <15 Very Little GFR Left ESRD GFR <15 on QUARTER SUPERVISOR Lab Order: Complete Blood Count; SPEC'M 10/05/16 14:36 Test: WHITE BLOOD COUNT; Value: 14.6; Range: 4.0-10.0; Abnormal: Above high normal; Units: K/mm3; Status: F Test: RED BLOOD COUNT; Value: 4.96; Range: 4.30-6.10; Units: M/mm3; Status: F Test: HEMOGLOBIN; Value: 16.0; Range: 14.0-18.0; Units: g/dl; Status: F Test: HEMATOCRIT; Value: 46.0; Range: 42.0-52.0; Units: %; Status: F Test: MEAN CORPUSCULAR VOLUME; Value: 92.8; Range: 80.0-96.0; Units: fl; Status: F Test: MEAN CORPUSCULAR HEMOGLOBIN; Value: 32.3; Range: 27.0-33.0; Units: pg; Status: F Test: MEAN CORPUSCULAR HGB CONC; Value: 34.7; Range: 32.0-36.5; Units: g/dl; Status: F Test: RED CELL DISTRIBUTION WIDTH; Value: 11.8; Range: 11.5-14.5; Units: %; Status: F Test: PLATELET COUNT, AUTOMATED; Value: 285; Range: 150-450; Units: k/mm3; Status: F Lab Order: Drug Eval Toxicology ED Only; SPEC'M 10/05/16 14:41 Test: AMPHETAMINES LEVEL URINE; Value: NEGATIVE; Range: NEGATIVE; Status: F Test: BARBITURATES URINE; Value: NEGATIVE; Range: NEGATIVE; Status: F Test: BENZODIAZEPINES URINE; Value: POSITIVE; Range: NEGATIVE; Abnormal: Above high normal; Status: F Test: CANNABINOIDS URINE; Value: NEGATIVE; Range: NEGATIVE; Status: F Test: COCAINE METABOLITE URINE; Value: NEGATIVE; Range: NEGATIVE; Status: F Test: METHADONE URINE; Value: NEGATIVE; Range: NEGATIVE; Status: F Test: OPIATES URINE; Value: NEGATIVE; Range: NEGATIVE; Status: F Test: TRICYCLIC ANTIDEPRESS URINE; Value: NEGATIVE; Range: NEGATIVE; Status: F Test Note: ; ALL PRESUMPTIVE POSITIVE FINDINGS ARE UNCONFIRMED NORMAL VALUES THRESHOLD IN NG/ML AMPHETAMINES 1000 METHAMPHETAMINES 1000 BARBITURATES 300 BENZODIAZEPINES 300 CANNABINOIDS (THC) 50 COCAINE METABOLITE 300 METHADONE 300 OPIATES 300 PHENCYCLIDINE 25 TRICYCLIC ANTIDEPRESSANTS 1000 RESULTS ARE FOR MEDICAL PURPOSES ONLY. ALL URINE SPECIMENS WILL BE SAVED FOR 3 DAYS. IF CONFIRMATION OF A PRESUMPTIVE POSTIVE SCREEN RESULT IS DESIRED, CALL CHEMISTRY ([phone]) AND REQUEST URINE TO BE SENT TO REFERENCE LAB. FOR A LIST OF CLOSELY RELATED COMPOUNDS PLEASE CALL THE LAB. Lab Order: Ethyl Alcohol (ethanol); SPEC'M 10/05/16 14:36 Test: ETHYL ALCOHOL (ETHANOL); Value: < 0.003; Range: 0.000-0.010; Units: %; Status: F Lab Order: Liver Profile; SPEC'M 10/05/16 14:36 Test: AST/SGOT; Value: 26; Range: 15-37; Units: U/L; Status: F Test: ALT/SGPT; Value: 43; Range: 12-78; Units: U/L; Status: F Test: ALKALINE PHOSPHATASE; Value: 57; Range: 45-117; Units: U/L; Status: F Test: BILIRUBIN,TOTAL; Value: 0.6; Range: 0.2-1.0; Units: MG/DL; Status: F Test: BILIRUBIN,DIRECT; Value: 0.2; Range: 0.0-0.2; Units: MG/DL; Status: F Test: TOTAL PROTEIN; Value: 7.6; Range: 6.4-8.2; Units: GM/DL; Status: F Test: ALBUMIN; Value: 4.5; Range: 3.2-5.2; Units: GM/DL; Status: F Test: ALBUMIN/GLOBULIN RATIO; Value: 1.45; Range: 1.00-1.93; Status: F Lab Order: Salicylate Level; SPEC'M 10/05/16 14:36 Test: SALICYLATE LEVEL; Value: < 1.7; Range: 5.0-30.0; Abnormal: Below low normal; Units: MG/DL; Status: F Lab Order: Thyroid Stimulating Hormone; SPEC'M 10/05/16 14:36 Test: THYROID STIMULATING HORMONE; Value: 0.590; Range: 0.358-3.740; Units: uIU/ML; Status: F Lab Order: MAGNESIUM LEVEL; SPEC'M 10/05/16 14:36 Test: MAGNESIUM LEVEL; Value: 1.9; Range: 1.8-2.4; Units: MG/DL; Status: F Radiology Order: EKG-ADULT Test: EKG-ADULT REASON FOR EXAMINATION: withdrawl; Stationary ECG Study; [facility] - ED; ; Test Date: 2016-10-05; Pat Name: FADY SALDAÑA Department:; Room: -; 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 sd1 16:59 Discharge Assessment: Patient awake and alert. obeys commands, Oriented to person, ead place and time. patient administered narcotics - no. The following High Risk Discharge criteria are identified: None. Discharged to home ambulatory, with friend. Condition: improved. Discharge instructions given to patient, Instructed on discharge instructions, follow up and referral plans. medication usage, Demonstrated understanding of instructions, medications, Pt was receptive of discharge instructions/ teaching. Prescriptions given X 1. No special radiology studies were completed. Property sent home with patient. 17:00 Patient left the ED. lamont 10/06 09:25 Patient left the ED. sd1 Signatures: Dispatcher [employer] EDMS Emily Chavez MD MD sd1 Genna Rose, Automotive Service Porter Unit lbd Emani Harrell RN RN mcp John Milian, PSA PSA ac Kmi Baez, Reg Reg gb Gisella Nagy RN RN hs1 Vernell Delacruz, JEWELRY SALES JEWELRY SALES ct3 April Jaquez,RN RN Elva Archuleta DO DO bs6 Liudmila Powell, Reg Reg ks16 Chart Complete HERMAN
--- NOTE | 2016-10-08 10:27 | EDDOCDS ---
Physician Documentation [facility] Name: Juan Antonio Saldaña Age: 26 yrs Sex: Male : 1990 Arrival Date: 10/05/2016 Time: 13:56 Bed 3 Private MD: Luz He [facility] Disposition: 10/05/16 16:13 Discharged to Home/Self Care. Impression: Alcohol dependence with withdrawal. - Condition is Stable. - Discharge Instructions: Alcohol Withdrawal. - Prescriptions for Oxazepam 30 mg Oral Capsule - take 1 capsule by ORAL route 3 times per day MDD: 3 tabs; 10 capsule. - Medication Reconciliation, Local Pharmacy Hours form. - Follow up: [facility] Luz He; When: Call to arrange an appointment; Reason: Recheck today's complaints, Continuance of care. - Problem is new. - Symptoms have improved. Historical: - Allergies: no known allergies; - Home Meds: 1. ibuprofen 800 mg Oral tab 1 tab 4 times per day (Last dose: 10/02/2016) 2. Tylenol 500 mg Oral tab 2 tabs (Last dose: 10/04/2016 21:00) - PMHx: PTSD; Anxiety; Depression; - PSHx: none; - Social history: Smoking status: Patient states former smoker of tobacco. No barriers to communication noted, The patient speaks fluent Turkish, Speaks appropriately for age. - Family history: Not pertinent. - : The pt / caregiver states he / she is not on anticoagulants. Home medication list is obtained from the patient. - Exposure Risk Screening:: None identified. Vital Signs: 10/05 14:15 BP 126 / 75 (auto/); ead 14:15 Pulse 119 MON; Pulse Ox 98% ; ead 14:21 BP 126 / 75; Pulse 114; Resp 18; Temp 97.6(O); Pulse Ox 99% on R/A; Weight 88.45 kg / ct3 195 lbs (R); Height 71 in. (180.34 cm) (R); Pain 2/10; 16:01 BP 131 / 71; Pulse 100; Resp 18; Pulse Ox 99% on R/A; ead 16:59 BP 139 / 83; Pulse 100; Resp 16; Temp 98.4; Pulse Ox 100% on R/A; ead 14:21 Body Mass Index 27.20 (88.45 kg, 180.34 cm) ct3 MDM: 14:00 Consult PFS/PSA/Air Route Controller ordered. sd1 14:00 Incident Response Engineer/Pulse Ox/q 15 min VS ordered. sd1 14:00 Confirm accurate psychiatric medication list and times of last dosage ordered. sd1 14:00 Oxazepam 30 mg PO once ordered. sd1 14:00 Acetaminophen Level Ordered. EDMS 14:01 Basic Metabolic Profile Ordered. EDMS 14:01 Complete Blood Count Ordered. EDMS 14:01 Drug Eval Toxicology ED Only Ordered. EDMS 14:01 Ethyl Alcohol (ethanol) Ordered. EDMS 14:01 Liver Profile Ordered. EDMS 14:01 Salicylate Level Ordered. EDMS 14:01 Thyroid Stimulating Hormone Ordered. EDMS 14:01 ECG WITH READING ER PHYS+CARDIAG ordered. EDMS 14:40 NS 0.9% 1000 ml IV at bolus once ordered. sd1 14:56 MAGNESIUM LEVEL Ordered. EDMS 15:26 Complete Blood Count Reviewed. sd1 15:26 Drug Eval Toxicology ED Only Reviewed. sd1 15:37 Acetaminophen Level Reviewed. sd1 15:37 Salicylate Level Reviewed. sd1 15:37 Basic Metabolic Profile Reviewed. sd1 15:37 Ethyl Alcohol (ethanol) Reviewed. sd1 15:37 Liver Profile Reviewed. sd1 15:37 Thyroid Stimulating Hormone Reviewed. sd1 15:37 MAGNESIUM LEVEL Reviewed. sd1 15:50 ED course: 26 yo male presents with etoh withdrawal patient reports mild tremulousness sd1 no cp no db versed given prior to arrival by EMS patient reports to me he wants to stop drinking understands risks of drinking and taking serax he has OP FU for ETOH through [facility] PSA involved withdrawal mild. 17:16 Financial registration complete. ks16 17:16 [facility] [place] was scanned into [employer] and attached to record. ks16 10/06 09:30 PCR was scanned into [employer] and attached to record. gb 14:29 ECG/EKG was scanned into [employer] and attached to record. gb Administered Medications: 10/05 14:28 Drug: Oxazepam 30 mg [oxazepam 15 mg capsule (2 caps)] Route: PO; mcp 14:45 Drug: NS 0.9% 1000 ml [sodium chloride 0.9 % intravenous solution] Route: IV; Rate: mcp bolus; Site: left antecubital; Signatures: Dispatcher [employer] EDMS Emily Chavez MD MD sd1 Kim Baez, Reg Reg gb Gisella Nagy RN RN hs1 April Jaquez RN RN eaLiudmila Swann, Reg Reg ks16 Emani Harrell RN, mcp The chart was reviewed and I authenticate all verbal orders and agree with the evaluation and treatment provided.Corrections: (The following items were deleted from the chart) 14:56 14:47 MAGNESIUM LEVEL+LAB ordered. EDMS EDMS Attachments: 17:16 [facility] Payment Agreement ks16 14:29 ECG/EKG gb Chart Complete MTDD
== END 2016-10-06 09:25 | disposition home or self-care (01) ==
LOC: M ED 13:56
DX: F10.230 Alcohol dependence with withdrawal, uncomplicated (principal); F43.10 Post-traumatic stress disorder, unspecified; F41.9 Anxiety disorder, unspecified; F32.9 Major depressive disorder, single episode, unspecified; Z87.891 Personal history of nicotine dependence; Z79.899 Other long term (current) drug therapy
CPT/HCPCS: 80048; 80076; 80306; 83735; 84443; 85027; 93005; 93041; 99284; G0480

== ENCOUNTER → 2017-05-16 | Outpatient (CLI) | payer OTHER ==
--- NOTE | 2017-05-16 20:57 | ECHO ---
DATE OF PROCEDURE: 05/16/2017 REFERRING PHYSICIAN: Juan Antonio Easton MD INDICATION: Chest pain. HEIGHT: 180 cm WEIGHT: 88 kg DIMENSIONS: IVS: 1.2 LV: 4.6 LVPW: 1.2 LA: 3.5 Aorta: 2.9 FINDINGS: The study is of good technical quality. Left ventricle is of normal size and systolic function, estimated left ventricular ejection fraction (LVEF) 60-65%. Right ventricle has also normal size and systolic function. Both atria appear normal. All four cardiac valves were well seen and appear normal. No pericardial effusion is noted. Inferior vena cava is mildly dilated, indicative of likely mildly elevated central venous pressure. Aortic root, aortic arch and visualized segment of abdominal aorta all appear normal. Doppler interrogation reveals no aortic stenosis or insufficiency. There is trace mitral and tricuspid insufficiency. Calculated pulmonary artery pressure is within normal limits, even if assuming elevated central venous pressure (CVP) . Pulmonic valve is functionally competent. Mitral inflow pattern and tissue Doppler imaging of mitral annulus reveal normal diastolic function (E prime velocities of septal and lateral mitral annulus are 11.2 and 14.3 cm/s respectively). CONCLUSION 1. Study is of good technical quality. 2. Normal left ventricle (LV) size, mild left ventricular hypertrophy (LVH) and preserved LV systolic and diastolic function. 3. No significant valvular disease. 4. Possibly elevated central venous pressure, but likely normal pulmonary artery pressure. COMMENT: Subacute bacterial endocarditis (SBE) prophylaxis is not recommended. The study does not provide obvious explanation for chest discomfort. MTDD
== END ==
LOC: M CARPUL 09:18
PROVIDERS: ATTEND Internal Medicine
DX: R07.9 Chest pain, unspecified (principal)